=== PATIENT | female | born 1985 | race Caucasian/White ===

== ENCOUNTER 2021-11-25 16:23 | Emergency (ER) | payer BC ==
[~2021-11-25] VITALS: Ht 154.9 cm; Wt 50.0 kg
[~2021-11-25 16:23] MED LIST: CARAFATE1 GM PO; HYDROXYZINE HYD10 MG PO; OMEPRAZOLE DR40 MG PO; PAROXETINE10 MG PO; PAROXETINE20 MG PO; PROZAC10 MG PO
[2021-11-25 18:53] VITALS: BP 125/83
== END 2021-11-25 19:00 | disposition home or self-care (01) | DRG 392 ==
LOC: ED 16:23
DX: R11.2 Nausea with vomiting, unspecified (principal); R19.7 Diarrhea, unspecified; K21.9 Gastro-esophageal reflux disease without esophagitis; F95.2 Tourette's disorder; Z20.822 Contact with and (suspected) exposure to COVID-19